=== PATIENT | female | born 1970 | race Caucasian/White ===

== ENCOUNTER → 2020-04-22 | Outpatient (CLI) | payer OTHER | END | disposition home or self-care (01) | LOC: CVU 14:38 | PROVIDERS: ATTEND Internal Medicine Cardiovascular Disease | DX: I37.1 Nonrheumatic pulmonary valve insufficiency (principal); R94.31 Abnormal electrocardiogram [ECG] [EKG]; R07.89 Other chest pain | CPT/HCPCS: 93306; 93356 ==